=== PATIENT | male | born 1965 | race Caucasian/White ===

== ENCOUNTER 2016-10-16 17:03 | Emergency (ER) | payer MEDICAID ==
--- NOTE | 2016-10-20 17:50 | ER ---
ADMIT: 10/16/2016 RM/LOC: ER [facility] MR#: [id number] [address] [place] [address] Emergency Room Report SEX: M AGE: 51 : 1965 DATE: 10/16/2016 ADDENDUM: This patient comes to the ER because he has been short of breath and has had a cough for the last week. He was recently started on a Z-Rl today, but is concerned about increased shortness of breath. He says he has COPD, but he has not used an inhaler for months and months, he ran out. On physical exam, he is not moving a lot of air with auscultation. He was given a DuoNeb treatment, which was later repeated and Decadron, which really helped with his breathing. Chest x-ray was negative for pneumonia. DIAGNOSIS: Chronic obstructive pulmonary disease exacerbation. I wrote a prescription for prednisone and refilled an albuterol inhaler. Please see my T-sheet. ANALY Goodrich / Adonis Ferris MD / shukri JOB #: [id number] CC: Adonis Ferris MD, Attending Physician Tyra Oden APRN-ASHLEY, Family Physician
== END 2016-10-16 20:20 | disposition home or self-care (01) ==
LOC: ER 17:03
DX: J44.1 Chronic obstructive pulmonary disease with (acute) exacerbation (principal); Z87.891 Personal history of nicotine dependence; Z95.810 Presence of automatic (implantable) cardiac defibrillator; Z95.0 Presence of cardiac pacemaker; Z79.899 Other long term (current) drug therapy

== ENCOUNTER 2016-12-10 16:03 | Emergency (ER) | payer MEDICAID ==
--- NOTE | 2016-12-11 16:11 | ER ---
ADMIT: 12/10/2016 RM/LOC: ER [facility] MR#: [id number] [address] [address] [place] [address] Emergency Room Report SEX: M AGE: 51 : 1965 DATE: 12/10/2016 TIME: 1603 hours. Please refer to my T-sheet for complete H and P. HISTORY OF PRESENT ILLNESS: Briefly, the patient is a 51-year-old who comes in with leg swelling and shortness of breath. He has a known history of diabetes and congestive heart failure. He also has neuropathy. He has an AICD and a bypass. He does not sound like he takes his medications correctly. He has been off his insulin for well over a month. He states that he has taken Lasix. He has increased it from 20 to 40, but his leg keep swelling. He is not happy with the people over at [facility] for whatever reason. He does have insurance now and would like to be referred somewhere else. He does not have a cough. He has a known history of COPD, but has not been coughing. He was in here recently for bronchitis. PHYSICAL EXAMINATION: VITAL SIGNS: Blood pressure is 143/91, pulse 94, respirations 22, temp 96.6, saturating 100%. GENERAL: He is in no acute distress. HEENT: Grossly normal. LUNGS: Slightly decreased, a little bit of rales. HEART: Regular. ABDOMEN: Soft with a little bit of dependent edema. EXTREMITIES: 3+ edema in lower extremities. He has a little bit of stasis ulcers. NEUROLOGIC: Alert and oriented, nonfocal. EMERGENCY DEPARTMENT COURSE: His chest x-ray revealed a little bit of atelectasis and/or scarring in left lower lobe, otherwise no acute findings. CBC was normal except platelets 122. Chemistries normal except glucose 561. Troponin was negative. His EKG was paced, rate 95. I gave him 60 mg of IV Lasix, regular insulin 10 units subcutaneous. A long discussion with him, and ADMIT: 12/10/2016 RM/LOC: [facility] MR#: [id number] [address] ANYSANDRA ULLOA [address] [place] [address] Emergency Room Report SEX: M AGE: 51 : 1965 I talked to him about needing to get back on his insulin. He has both Lasix and insulin with refills, and he was comfortable with going home. ASSESSMENT: 1. Congestive heart failure, chronic in nature. 2. Hyperglycemia with med noncompliance. 3. Irregular chest x-ray, which I talked to him specifically about and needing to follow up next week. PLAN: We will increase his Lasix from 40 to 60 a day. We gave him 60 mg IV here. K-Dur 10 mEq a day. Take his insulin as directed. Watch his sugars closely. Return if worse. See Dr. Austin next week. Lamonte Kitchen MD/ modl JOB #: [id number] CC: Lamonte Kitchen MD, Attending Physician Gabriela Austin MD, Family Physician
== END 2016-12-10 17:30 | disposition home or self-care (01) ==
LOC: ER 16:03
DX: I50.9 Heart failure, unspecified (principal); E11.65 Type 2 diabetes mellitus with hyperglycemia; Z95.1 Presence of aortocoronary bypass graft; Z91.14 Patient's other noncompliance with medication regimen